=== PATIENT | male | born 1945 | race Caucasian/White ===

== ENCOUNTER → 2017-09-28 | Outpatient (CLI) | payer OTHER ==
[~2017-09-28] VITALS: Ht 188 cm; Wt 97.5 kg
[~2017-09-28] MED LIST: ACID CONTROLLER20 MG PO; AFRIN15 ML NS; ASPIR 8181 MG PO; ATENOLOL 25 MG25 M1 PO; CENTRUM SILVER1 EAC4 PO; COQ-10100 MG PO; FISH OIL 1,2001 EAC4 PO; GLIMEPIRIDE1 MG PO; GLIPIZIDE 10 MG10 MG PO; GLUCOSAMINE H1500 MG PO; LIPITOR80 MG PO; LISINOPRIL5 MG PO; METFORMIN HCL500 MG PO; PROSCAR 5MG TABL5 MG PO; TRAZODONE HCL50 MG PO; VERAPAMIL ER180 MG PO; VITAMIN D1000 UNI1 PO
--- NOTE | ~2017-09-28 | P ---
[facility] [place] [address] PROCEDURE REPORT Name: MELLISSA ESQUIVEL Room #: REG [facility]#: [id number] Admission: 09/28/17 Attend Phys: Ceferino Gupta MD Discharge: Date of : 43 Report #: [id number] THIS REPORT FOR: //name// CC: Ceferino Garcia MD DATE OF SERVICE: 09/28/2017 BRIEF HISTORY: The patient is a 72-year-old male who recently was found to have a positive Cologuard. He also has problems with change in stools with loose watery stools. PREOPERATIVE DIAGNOSIS: Positive Cologuard. POSTOPERATIVE DIAGNOSIS: Multiple colon polyps. MEDICATIONS: Deep sedation with propofol per anesthesia. SPECIMEN: 1. Polyp, splenic flexure. 2. Random biopsies of colon, rule out colitis. 3. Polyp at 70 cm. 4. Polyp at 40 cm. 5. Polyps x 3 at 20 cm. ESTIMATED BLOOD LOSS: 3 mL. PROCEDURE: Colonoscopy to cecum and terminal ileum with snare polypectomy and biopsy. FINDINGS: Prior to propofol sedation, procedure of colonoscopy discussed with the patient as well as potential risks and its complications. He indicates he understands and desires to proceed. DESCRIPTION OF PROCEDURE: With the patient in left lateral decubitus position, digital examination was completed which revealed no abnormalities. Subsequently, the [employer] video colonoscope was introduced in the rectum and advanced under direct vision to the cecum. Done with minimal difficulty. The cecum was identified by the ileocecal valve and appendiceal orifice. I was able to visualize the distal segment of terminal ileum, which was inspected and noted to be unremarkable. At that point, the scope was slowly withdrawn and careful circumferential views obtained. Unfortunately, there were some limitations with prep. There was coating of the colonic mucosa with a thin layer of bilious material. We irrigated and suctioned and cleaned up as much as possible. In spite of our efforts, not all the material could be removed. The limitations [facility] [address] [place] [address] PROCEDURE REPORT Name: MELLISSA ESQUIVEL Room #: REG [facility]#: [id number] Admission: 09/28/17 Attend Phys: Ceferino Gupta MD Discharge: Date of : 43 Report #: [id number] were mostly coating mucosa, so that was minimal problem for larger sessile lesions or pedunculated lesions. However, it was difficult to see, flat lesions. In spite of limitations with the prep upon withdrawal of the scope, the mucosa otherwise within normal limits, normal vascular and normal light reflex. Random biopsies were obtained to evaluate his diarrhea. Flat polyps in the range of about 4-6 mm were seen and removed by snare polypectomy from the splenic flexure, 70 cm and 40 cm. All had a benign appearance. The scope was further withdrawn and at about 20 cm in the distal sigmoid colon, a total of 3 polyps were seen. They range in size from about 3 mm to 5 mm and 2 removed with forceps biopsy and 1 by snare polypectomy. The scope was withdrawn in the rectum and no additional abnormalities were seen. Upon retroflexion, no abnormalities were seen. Scope was withdrawn. The patient tolerated procedure well. CONDITION OF THE PATIENT UPON DISCHARGE: Following the procedure, the patient drowsy, arousable and conversant and he will be discharged home when fully ambulatory. INSTRUCTIONS TO THE PATIENT AND FAMILY AT THE TIME OF DISCHARGE: The patient with multiple polyps as noted above. There were limitations of the prep. We will follow up on the pathology and make further recommendations. However, at this point in time, I would advise him to return in 2 years due to the prep limitations. In addition, with regards to the diarrhea, we will follow up on biopsies and make further recommendations. It is noted he does have diabetes, he has been on metformin, which may be contributory with regards to his loose and watery stools. <ELECTRONICALLY SIGNED> By: Ceferino Gupta MD 10/04/17 1155 0949 1930 Ceferino Gupta MD /nt
--- NOTE | ~2017-09-28 | P ---
[facility] [place] [address] PROCEDURE REPORT Name: MELLISSA ESQUIVEL Room #: REG [facility]#: [id number] Admission: 09/28/17 Attend Phys: Ceferino Gupta MD Discharge: Date of : 44 Report #: [id number] THIS REPORT FOR: //name// CC: Ceferino Garcia MD DATE OF SERVICE: 09/28/2017 BRIEF HISTORY: The patient is a 72-year-old male with longstanding history of reflux, which sounds to be poorly controlled. He also has intermittent solid food dysphagia, especially for hotdogs. He also was recently found to have a positive Cologuard, which possibly represents a positive Hemoccult. In addition, he has had loose stools, which have been progressively worsening over the past few months. He does have a history of diabetes. PREOPERATIVE DIAGNOSIS: Poorly controlled reflux and dysphagia. POSTOPERATIVE DIAGNOSES: 1. Grade C erosive esophagitis. 2. Small hiatus hernia. 3. Diffuse gastritis. 4. Moderate duodenitis involving the duodenal bulb and second portion of the duodenum. MEDICATIONS: Deep sedation with propofol per anesthesia. SPECIMENS: 1. Biopsies of gastritis. 2. Small bowel biopsies to rule out celiac disease regarding diarrhea. 3. Biopsy of distal esophagus, rule out Arana. ESTIMATED BLOOD LOSS: 3 mL PROCEDURE: Esophagogastroduodenoscopy with biopsy and Bullard dilation. FINDINGS: Prior to propofol sedation, procedure of upper endoscopy was discussed with the patient as well as potential risks and its complications. He indicates he understands and desires to proceed. DESCRIPTION OF PROCEDURE: With the patient in left lateral decubitus position, the Fuji video endoscope was inserted in the cervical esophagus under direct vision without difficulty. Examination of this organ through its length revealed normal esophageal mucosa in the proximal esophagus. Distally, there was evidence of esophagitis involving at least half, if not more the circumference of the GE junction with erosions and superficial ulcerations. [facility] [address] [place] [address] PROCEDURE REPORT Name: MELLISSA ESQUIVEL Robert Room #: REG [facility]#: [id number] Admission: 09/28/17 Attend Phys: Ceferino Gupta MD Discharge: Date of : 44 Report #: [id number] There were also erosions scattered in the distal body of the stomach. There was also question of a short segment, less than 2 cm segment of Arana esophagus and multiple biopsies were obtained. In addition, intermittently, small hiatus hernia was seen. The mucosa and hernia was normal. Bleeding was not seen. Scope was advanced in the stomach, was examined on end view as well as retroflexed views. There was a pattern of diffuse gastritis with mild to moderate erythematous changes in the antrum of stomach. No ulcers were seen. No bleeding was seen. Upon retroflexion, no mass lesions were seen. The pylorus was normal. Examination of duodenal bulb, duodenal sweep revealed moderate duodenitis involving the duodenal bulb and second portion of the duodenum, discrete ulcers were not seen. Multiple small bowel biopsies were obtained to evaluate for celiac disease. At that point, the scope was slowly withdrawn and careful circumferential views confirmed the above findings. The patient tolerated the procedure well. Although a definite stricture was not seen, due to symptoms of dysphagia, he was dilated with passage of 50-Ugandan Bullard dilator. CONDITION OF THE PATIENT UPON DISCHARGE: Following the procedure, the patient was drowsy and prepared for colonoscopy. INSTRUCTIONS TO THE PATIENT AND FAMILY AT THE TIME OF DISCHARGE: The patient has significant esophagitis, which I believe has been poorly controlled. We will place him on omeprazole 40 mg daily for at least 8 weeks and then he may attempt to reduce lowest dose to control symptoms. We will follow up on biopsies and consider repeat endoscopy and biopsy in 8 weeks due to the possible Arana esophagus and esophagitis. He should return for dilation on an as needed basis. We will follow up on biopsies with regard to the possibility of celiac disease. <ELECTRONICALLY SIGNED> By: Ceferino Gupta MD 10/04/17 1155 0911 1823 Ceferino Gupta MD /nt
== END | disposition home or self-care (01) ==
LOC: GI 07:11
DX: D12.3 Benign neoplasm of transverse colon (principal); K29.50 Unspecified chronic gastritis without bleeding; D12.4 Benign neoplasm of descending colon; D12.5 Benign neoplasm of sigmoid colon; K44.9 Diaphragmatic hernia without obstruction or gangrene; I10 Essential (primary) hypertension; E78.00 Pure hypercholesterolemia, unspecified; K21.9 Gastro-esophageal reflux disease without esophagitis; E11.9 Type 2 diabetes mellitus without complications; J45.909 Unspecified asthma, uncomplicated; Z98.890 Other specified postprocedural states
CPT/HCPCS: 62110; 62900

== ENCOUNTER → 2018-01-24 | Outpatient (CLI) | payer OTHER ==
[~2018-01-24] VITALS: Ht 188 cm; Wt 97.5 kg
[~2018-01-24] MED LIST changes: +OMEPRAZOLE 20 M20 M1 PO; +VERAPAMIL E.R240 M1 PO
--- NOTE | ~2018-01-24 | P ---
[facility] [place] [address] PROCEDURE REPORT Name: MELLISSA ESQUIVEL Robert Room #: REG [facility]#: [id number] Admission: 01/24/18 Attend Phys: Ceferino Gupta MD Discharge: Date of : 44 Report #: [id number] THIS REPORT FOR: //name// CC: Ceferino Garcia MD BRIEF HISTORY: The patient is a 72-year-old male known to me with history of previous endoscopy several months ago, at which time he was found to have a grade C esophagitis. Biopsy of the esophagitis revealed a focus of Arana esophagus. He returns now after treatment for reflux esophagitis for confirmatory biopsies regarding his Arana. He reports he has had no reflux symptoms since starting the omeprazole. PREOPERATIVE DIAGNOSIS: Arana's esophagus. POSTOPERATIVE DIAGNOSES: 1. Short segment Arana esophagus. 2. A 3 cm sliding type hiatus hernia. 3. Mild erythematous antral gastritis. MEDICATIONS: Deep sedation with propofol per anesthesia. SPECIMEN: Biopsies of distal esophagus regarding Arana esophagus. ESTIMATED BLOOD LOSS: 3 mL. PROCEDURE: EGD with biopsy. FINDINGS: Prior to propofol sedation, procedure of upper endoscopy and biopsy was discussed with the patient, as well as potential risks and its complications. He indicates he understands and desires to proceed. DESCRIPTION OF PROCEDURE: With the patient in left lateral decubitus position, the Olympus video endoscope was inserted in the cervical esophagus under direct vision without difficulty. Examination of this organ through its entire length revealed normal esophageal mucosa into the distal esophagus. It is noted that his esophagitis has completely healed. There is some evidence of scarring in the distal esophagus and some very slight pseudo-diverticula formation in the very distal esophagus. Long, about one half of the circumference from the esophagus, there is an irregular squamocolumnar junction consistent with a short segment Arana esophagus. There are no mass lesions seen. There were no ulcers or elevated lesions. The Arana mucosa is completely flat and smooth. Multiple biopsies were obtained. The scope was advanced fully into the stomach, which was examined on end view, as well as retroflexed views. There is a linear gastritis in the antrum of the stomach. No ulcers or erosions were seen. Examination of the proximal stomach on end view, as well as retroflexed views [address] [address] PROCEDURE REPORT Name: ALVINMELLISSA Room #: REG [facility] Mony.#: [id number] Admission: 01/24/18 Attend Phys: Ceferino Gupta MD Discharge: Date of : 43 Report #: [id number] revealed mucosa proximally. The hiatus hernia was intermittently seen. In addition, there was a tiny amount of residual food high in the fundus of the stomach. This may be significant in view of his history of diabetes. A large amount of food was not seen. There was no liquid in his stomach. The pylorus, duodenal bulb, and postbulbar duodenal sweep were all inspected and noted to be within normal limits. At that point, the scope was slowly withdrawn and careful circumferential views confirmed the above findings. The patient tolerated the procedure well. CONDITION OF THE PATIENT UPON DISCHARGE: Following procedure, the patient was drowsy, will be discharged home when fully ambulatory. INSTRUCTIONS TO THE PATIENT AND FAMILY AT THE TIME OF DISCHARGE: We will follow up on biopsies obtained today with regard to his Arana mucosa. If there is no dysplasia, he should have a repeat endoscopy in 3 years. If dysplasia is present, he may require additional treatment. He should continue his PPI daily. He may use famotidine as needed. He does have diabetes and some retained material in the stomach, suggestive of gastroparesis. We will obtain a gastric emptying study. He does complain of diffuse abdominal bloating. It is noted previous biopsies for celiac disease were negative. Suggest probiotic at this time. He does have some looseness of stool, but he is taking metformin. Another consideration of the small intestinal bacterial overgrowth. Antibiotic treatment may be consideration for this patient. We will have him return in the office for further evaluation. <ELECTRONICALLY SIGNED> By: Ceferino Gupta MD 01/25/18 1622 0754 0939 Ceferino Gupta MD /nt
--- NOTE | ~2018-01-24 | PATH ---
[facility] [place] [address] PATHOLOGY RPT PROCEDURE Name: EDINSON CHUNG Room #: REG TONY Sykes.#: [id number] Admission: 01/24/18 Date of : 43 Discharge: Report #: [id number] Path Case #: [id number] [facility] Accession Number: [id number] . 01 Material submitted: . BIOPSY DISTAL ESOPHAGUS HX BARRETTS - FOLLOW UP . 01 Clinician provided ICD-10: K22.70 . 01 Clinical history: . Pre-OP DX: Arana's esophagus Post-OP DX: Arana's esophagus, hiatal hernia, gastritis . 02 Diagnosis: Gastroesophageal mucosa, distal esophagus, history of Arana's - follow up, endoscopic biopsy: - Gastric cardia-type mucosa with moderate acute and chronic inflammation. - Squamous mucosa with mild esophagitis. - Negative for intestinal metaplasia (Arana's metaplasia) or dysplasia. . (IUV:mml; 01/25/18) [facility]/01/25/2018 . 02 Electronically signed: . Luiza Castaneda MD, Pathologist NPI- [id number] . 01 Gross description: . Received in formalin labeled "Edinson Chung, BX distal esophagus, Hx Arana's," are 4 segments of vallejo soft tissue measuring 1.0 x 0.6 x 0.2 cm in aggregate dimensions and ranging from 0.3 to 0.5 cm in maximum dimension. The specimen is submitted entirely in cassette A1. (TSD; 01/24/2018) TOB/TOB . 02 Pathologist provided ICD-10: K20.9 . 02 CPT . 946864 Specimen Comment: A courtesy copy of this report has been sent to Specimen Comment: [phone], . Specimen Comment: Report sent to and Performed at: [address], [place], [place] [id number] [place] [address] PATHOLOGY RPT PROCEDURE Name: EDINSON CHUNG Room #: REG Bharathi Sykes.#: [id number] Admission: 01/24/18 Date of : 43 Discharge: Report #: [id number] Path Case #: [id number] MD Aneesh Sanchez MD Phone: [phone] Performed at: [address] [facility] [address] [id number] MD Luiza Castaneda MD Phone: [phone]
== END | disposition home or self-care (01) ==
LOC: GI 06:25
DX: K22.70 Barrett's esophagus without dysplasia (principal); K44.9 Diaphragmatic hernia without obstruction or gangrene; J45.909 Unspecified asthma, uncomplicated; I10 Essential (primary) hypertension; E78.00 Pure hypercholesterolemia, unspecified; K21.9 Gastro-esophageal reflux disease without esophagitis; E11.9 Type 2 diabetes mellitus without complications; Z98.41 Cataract extraction status, right eye; Z98.42 Cataract extraction status, left eye; Z98.890 Other specified postprocedural states
CPT/HCPCS: 62110; 62900

== ENCOUNTER → 2018-02-07 | Outpatient (CLI) | payer OTHER | LOC: NUC 08:57 | DX: K31.84 Gastroparesis (principal); I10 Essential (primary) hypertension; E78.00 Pure hypercholesterolemia, unspecified; E11.9 Type 2 diabetes mellitus without complications ==

== ENCOUNTER → 2019-10-28 | Outpatient (CLI) | payer OTHER | LOC: LAB 10:48 | PROVIDERS: ATTEND Family Medicine | DX: R50.9 Fever, unspecified (principal); R05 Cough; Z20.828 Contact with and (suspected) exposure to other viral communicable diseases ==

== ENCOUNTER → 2020-01-26 | Outpatient (CLI) | payer OTHER ==
[~2020-01-26] MED LIST changes: +JANUVIA100 MG PO; +LISINOPRIL10 MG PO; +OMEPRAZOLE40 MG PO; +VITAMIN D325 MC3 PO
== END ==
LOC: LAB 10:53
PROVIDERS: ATTEND Specialist
DX: Z01.812 Encounter for preprocedural laboratory examination (principal); Z20.828 Contact with and (suspected) exposure to other viral communicable diseases

== ENCOUNTER → 2020-01-29 | Outpatient (CLI) | payer OTHER ==
[~2020-01-29] VITALS: Ht 188 cm; Wt 95.3 kg
--- NOTE | 2020-01-30 15:07 | PATH ---
[facility] [place] [address] PATHOLOGY RPT PROCEDURE Name: EDINSON CHUNG [facility] [id number] Admission: 01/29/20 Date of : 43 Discharge: Report #: [id number] Path Case #: [id number] [facility] Accession Number: [id number] . 01 Material submitted: . 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 Modifiers: distal PART B: cecum - POLYP AT 60CM PART C: cecum - CECAL POLYP PART D: colon - MID TRANSVERSE COLON POLYP. Modifiers: mid, transverse PART E: colon - POLYP AT 50CM PART F: colon - POLYP AT 30CM PART G: rectum - RECTAL POLYP . 01 Clinical history: . HX OF VILLARREAL'S, HX OF POLYPS DX: COLON POLYP . 02 Diagnosis: A. Gastroesophageal mucosa, distal esophagus history of questionable Villarreal's, endoscopic biopsy: - Gastric cardia-type mucosa with moderate to marked active inflammation. - Squamous mucosa with mild active esophagitis. - Negative for intestinal metaplasia (Villarreal's) or dysplasia. . B. Polyp at 60 cm, endoscopic biopsy: - Tubular adenoma. - Negative for high-grade dysplasia. . C. Polyp, cecal polyp, endoscopic biopsy: - Tubular adenoma and a lymphoid aggregate. - Negative for high-grade dysplasia. . D. Polyp, mid-transverse colon, endoscopic biopsy: - Tubular adenoma identified in multiple fragments. - Negative for high-grade dysplasia. . E. Polyp, at 50 cm, endoscopic biopsy: - Tubular adenoma. - Negative for high-grade dysplasia. . F. Polyp, at 30 cm, endoscopic biopsy: - Tubular adenoma. - Negative for high-grade dysplasia. . G. Polyp, rectal polyp, endoscopic biopsy: - Hyperplastic polyp. - Negative for dysplasia. [facility] [address] [place] [address] PATHOLOGY RPT PROCEDURE Name: EDINSON CHUNG [facility] [id number] Admission: 01/29/20 Date of : 43 Discharge: Report #: [id number] Path Case #: [id number] . 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 02 Electronically signed: . Luiza Castaneda MD, Pathologist NPI- [id number] . 01 Gross description: . A. Received in formalin labeled "Edinson Chung, BX of distal esophagus rule out Villarreal's" are multiple vallejo-brown soft tissue fragments measuring in aggregate 0.7 x 0.4 x 0.1 cm. The specimen is submitted entirely in A1. . B. Received in formalin labeled "Edinson Chung, polyp at 60 cm" is a 1.2 x 0.6 x 0.2 cm fragment of vallejo-brown mucosa. The margin is inked and the specimen is bisected and submitted in B1. . C. Received in formalin labeled "Edinson Chung, cecal polyp" is a 0.3 x 0.3 x 0.2 cm fragment of vallejo-brown mucosa. The margin is inked and the specimen is submitted without sectioning in C1. . D. Received in formalin labeled "Edinson Chung, mid transverse colon polyp" are multiple vallejo-brown soft tissue fragments measuring in aggregate 0.9 x 0.3 x 0.1 cm. The specimen is submitted entirely in D1. . E. Received in formalin labeled "Edinson Chung, polyp at 50 cm" are multiple vallejo-brown soft tissue fragments measuring in aggregate 0.9 x 0.6 x 0.1 cm. The specimen is submitted entirely in E1. . F. Received in formalin labeled "Edinson Chung, polyp at 30 cm" is a 0.8 x 0.6 x 0.2 cm fragment of vallejo-brown mucosa. The margin is inked and the specimen is bisected and submitted in F1. . G. Received in formalin labeled "Edinson Chung, rectal polyp" is a 0.6 x 0.5 x 0.4 cm fragment of vallejo-brown mucosa. The margin is inked and the specimen is bisected and submitted in G1. ([facility]; 01/29/2020) [facility] 01/29/2020 1737 Local . 02 Pathologist provided ICD-10: K20.9, D12.6, D12.0, D12.3, D12.6, K62.1, Z87.19, Z86.010 . 02 CPT . 410518, 148487, 372364, 235962, 920770, 622737, 284634 Specimen Comment: A courtesy copy of this report has been sent to [phone], [phone] Specimen Comment: [phone] Specimen Comment: Report sent to / DR MONTOYA [facility] [address] [place] [address] PATHOLOGY RPT PROCEDURE Name: EDINSON CHUNG Room #: REG [facility] Mony.#: [id number] Admission: 01/29/20 Date of : 43 Discharge: Report #: [id number] Path Case #: [id number] Performed at: 01 [facility] [address], [place], [place] [id number] MD Aneesh Sanchez MD Phone: [phone] Performed at: 02 [facility] [place] [address] [place], [place] [id number] MD Luiza Castaneda MD Phone: [phone]
--- NOTE | 2020-02-05 11:28 | P ---
[facility] [place] [address] PROCEDURE REPORT Name: MELLISSA ESQUIVEL Room #: REG [facility]#: [id number] Admission: 01/29/20 Attend Phys: Ceferino Gupta MD Discharge: Date of : 43 Report #: [id number] THIS REPORT FOR: cc: Kiran Garcia MD, Neal A. MD Thesing, John A. MD ~ CC: Ceferino Garcia MD DATE OF SERVICE: 01/29/2020 OUTPATIENT COLONOSCOPY REPORT BRIEF HISTORY: The patient is a 74-year-old male, known to me with a history of multiple colon polyps removed 2 years ago. Prep was limited at that time. He was advised to return in 2 years for high risk screening colonoscopy. In addition, his mother was diagnosed with colon cancer when she was about 80. His brother was recently diagnosed with colon cancer at age 71. PREOPERATIVE DIAGNOSIS: High risk screening colonoscopy due to family history of colon cancer versus colon polyps. POSTOPERATIVE DIAGNOSIS: Multiple colon polyps. SPECIMENS: 1. Polyp at 60 cm. 2. Cecal polyp. 3. Mid transverse colon polyp. 4. Polyp at 50 cm. 5. Polyp at 30 cm. 6. Rectal polyp. ESTIMATED BLOOD LOSS: 3 mL. PROCEDURE: Colonoscopy to cecum and terminal ileum with snare polypectomy and biopsy. FINDINGS: Prior to propofol sedation, procedure of colonoscopy discussed with the patient as well as potential risks and its complications. He indicates he understands and desires to proceed. DESCRIPTION OF PROCEDURE: With the patient in left lateral decubitus position, digital examination was completed, which revealed no abnormalities. Subsequently, the Olympus video colonoscope was introduced into the rectum, advanced under direct vision to the cecum. This was done with minimal [facility] [address] [place] [place] [address] PROCEDURE REPORT Name: MELLISSA ESQUIVEL Room #: REG [facility]#: [id number] Admission: 01/29/20 Attend Phys: Ceferino Gupta MD Discharge: Date of : 43 Report #: [id number] difficulty. The cecum was identified by the ileocecal valve and the appendiceal orifice. As an aside, the appendiceal orifice was quite large and we could actually see down into the appendix. No luminal abnormalities were identified. At that point, the scope was slowly withdrawn and careful circumferential views were obtained including retroflexion of the scope in the ascending colon. Upon slow withdrawal of the scope, the prep was good. The mucosa within normal limits, normal vascular pattern, normal light reflex. In the cecum, a diminutive polyp was seen and removed with biopsy forceps. The scope was further withdrawn and in the mid transverse colon, a 5-6 mm sessile polyp was seen on the edge of fold and removed by cold snare polypectomy as well as with biopsy forceps. At 60 cm, a 5 mm round fairly flat polyp was seen and removed by cold snare polypectomy. At 50 cm, an oblong 6-7 mm polyp was seen and removed by cold snare polypectomy. At 30 cm, a very flat 4-5 mm polyp was seen and removed by cold snare polypectomy. Also, in the rectum, a 5 mm, round, fairly flat polyp was seen and removed by cold snare polypectomy. No other abnormalities were seen on this examination. Upon retroflexion, no abnormalities were seen. Scope was withdrawn. The patient tolerated the procedure well. CONDITION OF THE PATIENT UPON DISCHARGE: Following procedure, the patient was drowsy, arousable and conversant and will be discharged home when fully ambulatory. INSTRUCTIONS TO THE PATIENT AND FAMILY AT THE TIME OF DISCHARGE: A total of 6 polyps were identified and removed today. All were small, had a benign appearance. All had the appearance of adenomas. If 3 or more polyps are adenomas, he should return in 3 years, otherwise return in 5 years for high risk screening colonoscopy. Last colonoscopy was a little more than 2 years ago. Withdrawal time from the cecum was 16 minutes 45 seconds. <ELECTRONICALLY SIGNED> By: Ceferino Gupta MD 02/05/20 1128 0940 1040 Ceferino Gupta MD /nt
--- NOTE | 2020-02-05 11:28 | P ---
[facility] [place] [address] PROCEDURE REPORT Name: MELLISSA ESQUIVEL Room #: REG [facility]#: [id number] Admission: 01/29/20 Attend Phys: Ceferino Gupta MD Discharge: Date of : 43 Report #: [id number] THIS REPORT FOR: cc: Kiran Garcia MD, Neal A. MD Thesing, John A. 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 He has had longstanding reflux symptoms. In 2018, biopsies did reveal evidence of Arana mucosa in the distal esophagus, however, followup biopsies 6 months later were negative for Arana. He continues on omeprazole with good control of reflux symptoms. He presents for further evaluation of possible Arana esophagus. PREOPERATIVE DIAGNOSES: Reflux disease and questionable Arana esophagus. POSTOPERATIVE DIAGNOSES: 1. 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 2. A 3 cm sliding type hiatus hernia. 3. Mild erythematous gastritis. MEDICATIONS: Deep sedation with propofol per anesthesia. SPECIMEN: Biopsy of distal esophagus, rule out Arana. ESTIMATED BLOOD LOSS: 3 mL. PROCEDURE: EGD with biopsy. FINDINGS: Prior to propofol sedation, procedure of upper endoscopy was discussed with the patient as well as potential risks and its complications. He indicates he understands and desires to proceed. DESCRIPTION OF PROCEDURE: With the patient in left lateral decubitus position, the Olympus video endoscope was inserted in the cervical esophagus under direct vision without difficulty. Examination of this organ through its entire length revealed normal esophageal mucosa down in the squamocolumnar junction. Squamocolumnar junction was inspected. The Z line was somewhat irregular. There were also a couple of small questionable islands of Arana mucosa about the squamocolumnar junction, no more than a centimeter. The mucosa was flat. It was examined with narrow banding imaging and white light. No strictures or masses were seen. No nodules were seen. No ulcers were seen. [facility] [address] [place] [address] PROCEDURE REPORT Name: MELLISSA ESQUIVEL Room #: REG [facility] Peggy#: [id number] Admission: 01/29/20 Attend Phys: Ceferino Gupta MD Discharge: Date of : 43 Report #: [id number] biopsies were obtained. The segment of Arana was no more than 2 cm. The scope was advanced in approximately 3 cm sliding type hiatus hernia. Mucosa and hernia was unremarkable. The scope was advanced in the stomach, was examined on end view as well as retroflexed views. Upon retroflexion, the hiatus hernia was seen. No other abnormalities were identified. In the distal stomach, there was erythema. Previous biopsies were negative for H. pylori and those were not repeated today. Pylorus, duodenal bulb, and postbulbar duodenal sweep were inspected and noted to be unremarkable. At that point, the scope was slowly withdrawn under careful circumferential views, confirmed the above findings. The patient tolerated the procedure well. CONDITION OF THE PATIENT UPON DISCHARGE: Following procedure, the patient drowsy and prepared for colonoscopy. INSTRUCTIONS TO THE PATIENT AND FAMILY AT THE TIME OF DISCHARGE: We will follow up on biopsies of Arana. If he does have Arana, followup biopsies in 3 years may be reasonable. If there is no Arana today, I do not think he would need further followup or evaluation for Arana. However, he should do his best to control his reflux symptoms with omeprazole and ultimate goal is to reduce to lowest dose possible to control symptoms. Proceed with colonoscopy. <ELECTRONICALLY SIGNED> By: Ceferino Gupta MD 02/05/20 [id number] Ceferino Gupta MD /nt
== END | disposition home or self-care (01) ==
LOC: GI 07:52
PROVIDERS: ATTEND Specialist
DX: Z12.11 Encounter for screening for malignant neoplasm of colon (principal); Z86.010 Personal history of colon polyps; Z80.0 Family history of malignant neoplasm of digestive organs; D12.5 Benign neoplasm of sigmoid colon; D12.0 Benign neoplasm of cecum; D12.4 Benign neoplasm of descending colon; K62.1 Rectal polyp; D12.3 Benign neoplasm of transverse colon; K21.0 Gastro-esophageal reflux disease with esophagitis; K44.9 Diaphragmatic hernia without obstruction or gangrene; K29.70 Gastritis, unspecified, without bleeding; I10 Essential (primary) hypertension; E11.9 Type 2 diabetes mellitus without complications; E78.00 Pure hypercholesterolemia, unspecified; J45.909 Unspecified asthma, uncomplicated; K21.9 Gastro-esophageal reflux disease without esophagitis; Z98.890 Other specified postprocedural states; Z79.899 Other long term (current) drug therapy; Z85.46 Personal history of malignant neoplasm of prostate; Z87.442 Personal history of urinary calculi; Z87.19 Personal history of other diseases of the digestive system
CPT/HCPCS: 62110; 62900

== ENCOUNTER → 2020-08-27 | Outpatient (CLI) | payer OTHER | LOC: SJCVC 10:35 | PROVIDERS: ATTEND Internal Medicine Cardiovascular Disease | DX: R94.31 Abnormal electrocardiogram [ECG] [EKG] (principal); I45.10 Unspecified right bundle-branch block; I47.1 Supraventricular tachycardia; I10 Essential (primary) hypertension; E78.00 Pure hypercholesterolemia, unspecified; E11.9 Type 2 diabetes mellitus without complications; K21.9 Gastro-esophageal reflux disease without esophagitis; Z79.82 Long term (current) use of aspirin; Z79.899 Other long term (current) drug therapy; Z72.89 Other problems related to lifestyle ==

== ENCOUNTER → 2021-03-01 | Outpatient (CLI) | payer OTHER | LOC: SJCVCIMAG 07:58 | PROVIDERS: ATTEND Internal Medicine Cardiovascular Disease | DX: I45.10 Unspecified right bundle-branch block (principal); R00.1 Bradycardia, unspecified; I47.1 Supraventricular tachycardia; I10 Essential (primary) hypertension; E78.00 Pure hypercholesterolemia, unspecified; E11.9 Type 2 diabetes mellitus without complications; K21.9 Gastro-esophageal reflux disease without esophagitis; J45.909 Unspecified asthma, uncomplicated; E78.5 Hyperlipidemia, unspecified; N20.0 Calculus of kidney; R00.2 Palpitations; R06.00 Dyspnea, unspecified; Z79.84 Long term (current) use of oral hypoglycemic drugs; Z79.82 Long term (current) use of aspirin; Z79.899 Other long term (current) drug therapy; Z72.89 Other problems related to lifestyle; Z86.16 Personal history of COVID-19 ==